=== PATIENT | male | born 1980 | race Caucasian/White ===

== ENCOUNTER 2024-12-04 12:52 | Outpatient (RCR) | payer MEDICARE, MEDICAID, SELFPAY | END 2024-12-25 14:13 | disposition home or self-care (01) | LOC: PT 12:52 | PROVIDERS: PCP Neurological Surgery; Visit Provider Neurological Surgery | DX: M54.16 Radiculopathy, lumbar region (principal) | CPT/HCPCS: 97110; 97113; 97140; 97163 ==